=== PATIENT | male | born 1995 | race Caucasian/White ===

== ENCOUNTER 2017-12-23 06:36 | Inpatient (IN) | payer BC, OTHER ==
[~2017-12-23] VITALS: Ht 185.4 cm; Wt 102.0 kg
[2017-12-23] VITALS (7 sets, daily range): BP systolic 110–141; BP diastolic 59–87; PULSE 72–115; RESP 16–22; TEMP 97.5–98.1; O2SAT 97–99
[2017-12-23] MEDS ORDERED: ceFAZolin 2 GM PREMIX 50 ML ONE (06:40)
[2017-12-23] MEDS ORDERED: DIPHTH/TETANUS/ACEL PERTUSSIS (BOOSTER) 0.5 ML VIAL/PFS IM ONE (06:40)
[2017-12-23] MEDS ORDERED: IOHEXOL 350 MG/ML 10 ML VIAL (for RAD DIAG) IVCONTRAST ONE (06:52)
[2017-12-23] MEDS ORDERED: ONDANSETRON HCL 4 MG/2 ML VIAL ONE (07:00)
[2017-12-23] MEDS ORDERED: MORPHINE SULFATE 4 MG/ML INJ ONE (07:00)
[2017-12-23] MEDS ORDERED: MORPHINE SULFATE 4 MG/ML INJ IV PUSH ONE (07:00)
[2017-12-23] MEDS ORDERED: ONDANSETRON HCL 4 MG/2 ML VIAL IV PUSH ONE (07:00)
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
[2017-12-23 07:12] LABS: AUTOMATED NEUTROPHIL # 8.3 TH/MM3 (1.8-7.7); BASOPHIL # 0.1 TH/MM3 (0-0.2); BASOPHIL % 0.9 % (0.0-2.0); EOSINOPHIL # 0.1 TH/MM3 (0-0.4); EOSINOPHIL % 1.2 % (0.0-4.0); HEMATOCRIT 45.3 % (39.0-51.0); HEMOGLOBIN 15.8 GM/DL (13.0-17.0); LYMPH % 20.6 % (9.0-44.0); LYMPHOCYTE # 2.5 TH/MM3 (1.0-4.8); MEAN CELL VOLUME 86.4 FL (80.0-100.0); MEAN CORPUSCULAR HEMOGLOBIN 30.1 PG (27.0-34.0); MEAN CORPUSCULAR HGB CONC 34.8 % (32.0-36.0); MEAN PLATELET VOLUME 8.7 FL (7.0-11.0); MONO % 7.6 % (0.0-8.0); MONOCYTE # 0.9 TH/MM3 (0-0.9); NEUT % 69.7 % (16.0-70.0); PLATELET COUNT 262 TH/MM3 (150-450); RED BLOOD COUNT 5.25 MIL/MM3 (4.50-5.90); RED CELL DISTRIBUTION WIDTH 13.5 % (11.6-17.2); WHITE BLOOD COUNT 11.9 TH/MM3 (4.0-11.0)
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
[2017-12-23 07:17] LABS: INTERNATIONAL NORMALIZED RATIO 1.1 RATIO; PROTHROMBIN TIME - PATIENT 11.5 SEC (9.8-11.6)
[2017-12-23] MEDS: SODIUM CHLOR 0.9% 1000 ML INJ 1,000 ML IV SCH ×2 (08:04→21:29)
[2017-12-23] MEDS ORDERED: SENNOSIDES 8.6 MG TAB PO PRN (08:15)
[2017-12-23] MEDS ORDERED: ONDANSETRON HCL 4 MG/2 ML VIAL IV PUSH PRN (08:15)
[2017-12-23] MEDS ORDERED: BISACODYL 10 MG SUPP RECTAL PRN (08:15)
[2017-12-23] MEDS ORDERED: MISCELLANEOUS NURSING INFORMATION XX SCH (08:15)
[2017-12-23] MEDS ORDERED: HYDROmorphone HCL PF 1 MG/ML VIAL IV PUSH PRN (08:15)
[2017-12-23] MEDS ORDERED: CHLORHEXIDINE GLUCONATE 2 % 1 PACK (2 CLOTHS) TOP PRN (08:15)
[2017-12-23] MEDS ORDERED: LACTULOSE SYRUP 20 GM/30 ML CUP PO PRN (08:15)
[2017-12-23] MEDS ORDERED: MAGNESIUM HYDROXIDE SUSP 30 ML CUP PO PRN (08:15)
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
[2017-12-23] MEDS: DOCUSATE SODIUM 50 MG/SENNA 8.6 MG TAB PO SCH ×2 (09:00→21:00)
[2017-12-23] MEDS ORDERED: HYDROmorphone HCL PF 2 MG/ML VIAL ONE ×2 (09:11→15:21)
[2017-12-23 21:58] LABS: HEMOGLOBIN 15.3 GM/DL (13.0-17.0)
[2017-12-24] VITALS: BP 130/70; PULSE 79; PULSE 87; RESP 20; TEMP 97.7; O2SAT 97
[2017-12-24 04:00] VITALS: BP 133/86; PULSE 84; RESP 20; TEMP 98.8; O2SAT 98
[2017-12-24] MEDS: CHLORHEXIDINE GLUCONATE 2 % 1 PACK (2 CLOTHS) TOP SCH (04:00)
[2017-12-24 04:40] LABS: AUTOMATED NEUTROPHIL # 4.9 TH/MM3 (1.8-7.7); BASOPHIL # 0.1 TH/MM3 (0-0.2); EOSINOPHIL # 0.1 TH/MM3 (0-0.4); EOSINOPHIL % 1.7 % (0.0-4.0); HEMOGLOBIN 15.1 GM/DL (13.0-17.0); LYMPH % 20.8 % (9.0-44.0); LYMPHOCYTE # 1.5 TH/MM3 (1.0-4.8); MEAN CELL VOLUME 86.6 FL (80.0-100.0); MEAN CORPUSCULAR HEMOGLOBIN 30.4 PG (27.0-34.0); MEAN CORPUSCULAR HGB CONC 35.1 % (32.0-36.0); MEAN PLATELET VOLUME 8.4 FL (7.0-11.0); MONO % 10.1 % (0.0-8.0); MONOCYTE # 0.7 TH/MM3 (0-0.9); NEUT % 66.4 % (16.0-70.0); PLATELET COUNT 181 TH/MM3 (150-450); RED BLOOD COUNT 4.96 MIL/MM3 (4.50-5.90); RED CELL DISTRIBUTION WIDTH 13.5 % (11.6-17.2); WHITE BLOOD COUNT 7.4 TH/MM3 (4.0-11.0)
[2017-12-24 05:03] LABS: BICARBONATE 27.6 MEQ/L (21.0-32.0); CALCIUM 8.5 MG/DL (8.5-10.1); CREATININE 0.85 MG/DL (0.60-1.30)
[2017-12-24 07:50] VITALS: BP 139/84; PULSE 93; RESP 18; TEMP 97.4; O2SAT 96
[2017-12-24] MEDS: DOCUSATE SODIUM 50 MG/SENNA 8.6 MG TAB PO SCH ×2 (08:28→20:20)
[2017-12-24 09:44] LABS: HEMATOCRIT 40.4 % (39.0-51.0); HEMOGLOBIN 14.3 GM/DL (13.0-17.0)
[2017-12-24 12:00] VITALS: BP 119/67; PULSE 114; RESP 18; TEMP 99.5; O2SAT 95
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
[2017-12-24] MEDS ORDERED: ACETAMINOPHEN 325 MG TAB PO PRN (12:15)
[2017-12-24] MEDS: SODIUM CHLOR 0.9% 1000 ML INJ 1,000 ML IV SCH (12:19)
[2017-12-24] MEDS: oxyCODONE/ACETAMINOPHEN 5 MG/325 MG TAB PO PRN ×2 (13:35→20:19)
[2017-12-24 15:55] VITALS: BP 115/59; PULSE 86; RESP 16; TEMP 97.4; O2SAT 95
[2017-12-24 20:00] VITALS: BP 117/67; PULSE 75; PULSE 89; RESP 20; TEMP 97.1; O2SAT 98
[2017-12-25] VITALS: BP 121/74; PULSE 103; RESP 20; TEMP 98.1; O2SAT 96
[2017-12-25 04:00] VITALS: BP 121/78; PULSE 86; RESP 20; TEMP 98.9; O2SAT 95
[2017-12-25] MEDS: CHLORHEXIDINE GLUCONATE 2 % 1 PACK (2 CLOTHS) TOP SCH (04:00)
[2017-12-25] MEDS: SODIUM CHLOR 0.9% 1000 ML INJ 1,000 ML IV SCH (06:16)
[2017-12-25] MEDS ORDERED: PERI PO (06:56)
[2017-12-25] MEDS ORDERED: MAGN30S PO (06:56)
[2017-12-25 07:01] LABS: HEMATOCRIT 43.8 % (39.0-51.0); HEMOGLOBIN 15.4 GM/DL (13.0-17.0)
[2017-12-25] MEDS: DOCUSATE SODIUM 50 MG/SENNA 8.6 MG TAB PO SCH (07:53)
[2017-12-25 08:00] VITALS: BP 127/66; PULSE 73; PULSE 90; RESP 17; TEMP 97.5; O2SAT 93
[2017-12-25] MEDS ORDERED: OXYC1TAB63 PO ×2 (11:08→11:10)
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
== END 2017-12-25 12:50 | disposition home or self-care (01) | DRG 815 ==
LOC: NEPI 06:36 → NEDA 07:16 → EDBD 07:16 → N07B 18:18
PROVIDERS: ADMIT Surgery Trauma Surgery; ATTEND Surgery Trauma Surgery
DX: S36.039A Unspecified laceration of spleen, initial encounter (principal); J98.11 Atelectasis; V13.4XXA Pedal cycle driver injured in collision with car, pick-up truck or van in traffic accident, initial encounter; Y93.55 Activity, bike riding; Y92.410 Unspecified street and highway as the place of occurrence of the external cause
CPT/HCPCS: 71045; 71260; 74177; 80048; 80307; 85014; 85018; 85025; 85610; 85730; 86850; 86900; 86901; 90471; 90715; 94150; 96374; 96375; 99291; G0390; J0690; J1170; J2270; J2405; J7030; Q9967